=== PATIENT | male | born 1990 | race Caucasian/White ===

== ENCOUNTER 2017-02-26 14:39 | Emergency (ER) | payer OTHER ==
[2017-02-26 14:45] VITALS: PULSE 90; TEMP 97.7
[2017-02-26] MEDS ORDERED: HYDROmorphone 1 MG/ML 1 ML SYRINGE IM STA (15:05)
--- NOTE | 2017-02-26 15:08 | ED ---
General Adult HPI - General Chief complaint: Urogenital Stated complaint: Male Time Seen by Provider: 02/26/17 15:01 Source: patient, family, RN notes reviewed Mode of arrival: ambulatory Limitations: no limitations - History of Present Illness Initial comments: Patient is a pleasant 26-year-old male presenting to the emergency Department with complaints of left testicular pain. Onset was last night. Patient did do swimming the day before however no noticed significant trauma. Discomfort increases with touch and movement. Discomfort is somewhat severe. Patient has noticed swelling but no redness. No fever. No history of similar symptoms previously. No dysuria or urethral discharge. - Related Data Previous Rx's Medication Instructions Recorded Ciprofloxacin HCl [Cipro] 500 mg PO Q12HR #28 tablet 02/26/17 Hydrocodone/Acetaminophen [[place] 2 each PO Q6HR PRN #20 tab 02/26/17 5-325] Allergies Allergy/AdvReac Type Severity Reaction Status Date / Time amoxicillin Allergy Rash/Hives Verified 02/26/17 15:00 cephalexin [From Keflex] Allergy Rash/Hives Verified 02/26/17 15:00 Penicillins Allergy Rash/Hives Verified 02/26/17 15:00 sulfamethoxazole Allergy Rash/Hives Verified 02/26/17 15:00 [From Bactrim] trimethoprim [From Bactrim] Allergy Rash/Hives Verified 02/26/17 15:00 Review of Systems ROS Statement: Those systems with pertinent positive or pertinent negative responses have been documented in the HPI. ROS Other: All systems not noted in ROS Statement are negative. Constitutional: Denies: fever Eyes: Denies: eye pain ENT: Denies: ear pain Respiratory: Denies: cough Cardiovascular: Denies: chest pain Endocrine: Denies: fatigue Gastrointestinal: Denies: abdominal pain Genitourinary: Reports: testicular pain. Denies: urgency, dysuria, frequency, hematuria Musculoskeletal: Denies: back pain Skin: Denies: rash Past Medical History Past Medical History: No Reported History History of Any Multi-Drug Resistant Organisms: None Reported Past Surgical History: No Surgical Hx Reported Past Psychological History: No Psychological Hx Reported Smoking Status: Current every day smoker Past Alcohol Use History: None Reported Past Drug Use History: None Reported General Exam Limitations: no limitations General appearance: alert, in no apparent distress Head exam: Present: atraumatic Eye exam: Present: normal appearance, PERRL ENT exam: Present: normal oropharynx Neck exam: Present: normal inspection Respiratory exam: Present: normal lung sounds bilaterally Cardiovascular Exam: Present: regular rate, normal rhythm GI/Abdominal exam: Present: soft. Absent: tenderness exam: Present: other (Left testicle does appear swollen and is tender. There is mild erythema.) Extremities exam: Present: normal inspection Neurological exam: Present: alert Psychiatric exam: Present: normal affect, normal mood Skin exam: Present: other (Mild erythema left scrotal) Course Vital Signs 02/26/17 14:44 Temperature 97.7 F Pulse Rate 90 Respiratory 20 Rate Blood Pressure 125/84 O2 Sat by Pulse 98 Oximetry Medical Decision Making - Medical Decision Making Patient reexamined. Patient and family updated. - Radiology Data Radiology results: report reviewed (Sounds shows evidence for epididymal orchitis. Good flow.) Disposition Clinical Impression: Orchitis and epididymitis Disposition: HOME SELF-CARE Condition: Stable Instructions: Epididymo-Orchitis (ED) Additional Instructions: Please follow-up with primary care physician and that being the week. Return for fever, increased redness, increased pain or swelling, worsening symptoms or other concerns. Prescriptions: Ciprofloxacin HCl [Cipro] 500 mg PO Q12HR #28 tablet Hydrocodone/Acetaminophen [[place] 5-325] 2 each PO Q6HR PRN #20 tab PRN Reason: Pain Referrals: Maritza Tolliver MD [STAFF PHYSICIAN] - 1-2 days Kvng Leal MD [STAFF PHYSICIAN] - 1-2 days Time of Disposition: 16:22
--- NOTE | 2017-02-26 16:04 | US ---
EXAMINATION TYPE: US scrotum with doppler. Grayscale and color Doppler Duplex imaging performed of t he scrotum. DATE OF EXAM: 02/26/2017 COMPARISON: NONE CLINICAL HISTORY: Pain. Left side pain and swelling x last night, no injury EXAM MEASUREMENTS: TESTICLES: Right Testicle: 3.4 x 4.3 x 2.4 cm Left Testicle: 3.2 x 4.7 x 4.4 cm EPIDIDYMIS HEAD: Right Epididymis: 0.8 x 1.1 x 0.8 cm Left Epididymis: 1.0 x 1.3 x 1.0 cm Doppler performed to assess for testicular vascularity; good bilateral color flow and waveforms are s een. There is no evidence of testicular torsion. Presence of hydroceles: no Presence of varicoceles: no Left testicle appears hypervascular with no focal masses or lesions visualized. Hypoechoic septated area seen surrounding teste. Left epididymis appears heterogenous and slightly hypervascular. IMPRESSION: 1. Findings felt to reflect left-sided epididymoorchitis.
[2017-02-26] MEDS ORDERED: AZITHROMYCIN 500 MG TAB PO STA (16:22)
[2017-02-26 16:38] VITALS: BP 143/75; RESP 16
== END 2017-02-26 16:39 | disposition home or self-care (01) ==
LOC: EC 14:39
DX: N45.3 Epididymo-orchitis (principal); F17.200 Nicotine dependence, unspecified, uncomplicated; Z88.0 Allergy status to penicillin; Z88.1 Allergy status to other antibiotic agents; Z88.2 Allergy status to sulfonamides
CPT/HCPCS: 93975; 76870; 99284; 96372; J1170